=== PATIENT | male | born 1970 | race Caucasian/White ===

== ENCOUNTER 2020-08-30 02:18 | Inpatient (IN) | payer MEDICARE ==
[~2020-08-30] VITALS: Ht 182.9 cm; Wt 158.8 kg
[2020-08-30] VITALS (26 sets, daily range): BP systolic 75–168; BP diastolic 44–103
--- NOTE | 2020-08-30 03:06 | NUR ---
PT RECEIVED FOLLOWING MEDICATIONS AT [facility]: NS 1,500ML HYDROMORPHONE 2MG DOXYCYCLINE 100MG INSULIN 10 UNITS NOREPINEPHRINE 4MG/500ML TITRATE CEFTAZIDIME 1GM
[2020-08-30 03:07] LABS: BASOPHILS 1.2 % (0-2); EOSINOPHILS 0.7 % (0-7); HEMOGLOBIN 13.1 g/dL (13.5-17.5); LYMPHOCYTES 11.4 % (15-50); MCH 28.9 pg (26.0-34.0); MCHC 32.7 g/dL (31.0-37.0); MCV 88.5 fL (80.0-100.0); MEAN PLATELET VOLUME 9.8 fL (7.4-10.4); MONOCYTES 8.6 % (2-11); NEUTROPHILS 78.1 % (40-80); PLATELET COUNT 224 10x3/uL (130-400); RBC 4.52 10x6/uL (4.20-6.10); RDW 13.8 % (11.5-14.5); WBC 13.6 10x3/uL (4.8-10.8)
[2020-08-30 03:09] LABS: CALC OSMOLALITY 291 mosm/kg (275-300); CALCIUM 8.4 mg/dL (8.5-10.1); CARBON DIOXIDE 20.9 mmol/L (21.0-32.0); CHLORIDE - SERUM 100 mmol/L (98-107); CREATININE - SERUM 2.9 mg/dL (0.6-1.3); GLUCOSE 305 mg/dL (74-106); SODIUM 135 mmol/L (136-145); UREA NITROGEN 44 mg/dL (7-18); eGFR NON AFRICAN AMERICAN 25 mL/min (90-120)
[2020-08-30] MEDS ORDERED: BAYER CHEWABLE81 MG PO (03:10)
[2020-08-30] MEDS ORDERED: LIPITOR40 MG PO (03:10)
[2020-08-30 03:11] LABS: APTT 30.2 SECONDS (22.8-39.4); INR 1.55 (0.85-1.17); PROTIME 17.2 SECONDS (11.6-15.0)
[2020-08-30] MEDS ORDERED: ELIQUIS5 MG PO (03:11)
[2020-08-30] MEDS ORDERED: LANTUS INS100 UNITS/ SC (03:11)
[2020-08-30] MEDS ORDERED: LISINOPRIL-HCT1 EAC8 PO (03:11)
[2020-08-30] MEDS ORDERED: FENOFIBRATE160 MG PO (03:11)
[2020-08-30 03:12] LABS: D-DIMER-QUANTITATIVE 0.38 ug/mLFEU (0.20-0.54)
[2020-08-30] MEDS ORDERED: NOVOLOG100 UNIT/1 SC (03:12)
[2020-08-30] MEDS ORDERED: GLUCOPHAGE1000 MG PO (03:12)
[2020-08-30 03:26] LABS: ALBUMIN 2.4 g/dL (3.4-5.0); ALKALINE PHOSPHATASE 41 U/L (30-120); ALT (SGPT) 17 U/L (10-68); AMYLASE - SERUM 26 U/L (25-115); BILIRUBIN - TOTAL 0.58 mg/dL (0.2-1.3); CKMB 0.4 U/L (0.0-3.6); CREATINE KINASE 51 UL (21-232); LIPASE 110 U/L (73-393); PRO BNP 68 pg/mL (0-125); PROTEIN - SERUM 6.9 g/dL (6.4-8.2)
[2020-08-30 03:27] LABS: TROPONIN-I < 0.017 ng/mL (0.000-0.060)
--- NOTE | 2020-08-30 04:06 | NUR ---
URINE SENT TO LAB AT THIS TIME. PT REMAINS ON INVESTIGATIVE ANALYST, SINUS RHYTHM OF 92. RESPIRATIONS EVEN AND NON LABORED ON 2L NC. NAD NOTED, PT DENIES CURRENT NEEDS. NOTED TO BE MOVING AROUND IN BED FREELY, HELPED TO LAY RIGHT SIDE X1 ASSIST STATES THAT PAIN LESSENS WHEN HE LAYS ON HIS SIDE. CALL LIGHT WITHIN REACH, SIDE RAILS X2 AND BED LOWERED.
[2020-08-30 04:11] LABS: BILIRUBIN NEGATIVE (NEGATIVE); KETONE 1+ mg/dL (< 1+); NITRITE NEGATIVE (NEGATIVE); PH 5.5 (5.0-8.0); SQUAMOUS EPITHELIAL <1 HPF (0-4); UROBILINOGEN NORMAL mg/dL (< 2); WHITE CELLS - URINE 1 HPF (0-1)
[2020-08-30 04:14] LABS: UDS - AMPHET NEGATIVE QUAL (NEGATIVE); UDS - BARB NEGATIVE QUAL (NEGATIVE); UDS - BENZO NEGATIVE QUAL (NEGATIVE); UDS - COCAINE NEGATIVE QUAL (NEGATIVE); UDS - OPIATE POSITIVE QUAL (NEGATIVE); UDS - PCP NEGATIVE QUAL (NEGATIVE); UDS - THC NEGATIVE QUAL (NEGATIVE)
--- NOTE | 2020-08-30 04:23 | NUR ---
VANCOMYCIN INFUSION COMPLETE AT THIS TIME.
--- NOTE | 2020-08-30 11:15 | NUR ---
RELIEVING PRIMARY RN FOR LUNCH BREAK AT THIS TIME.
--- NOTE | 2020-08-30 12:08 | NUR ---
Pt had 800ml urine out. Pt ate roughly 1/4 of meal.
--- NOTE | 2020-08-30 14:58 | NUR ---
Pt cleaned and linens replaced. 350ml urine output noted.
--- NOTE | 2020-08-30 17:00 | NUR ---
Pt in no distress. Has no complaints. Denies pain. 500ml additional urine output.
--- NOTE | 2020-08-30 19:00 | NUR ---
Report given to Brie MILLER.
--- NOTE | 2020-08-31 02:48 | NUR ---
PT VSS. RR E/U. PT COMPLAINS OF HOW HOT ROOM IS. PT SHEETS SOAKED FROM SWEAT. NO FEVER. PT UNABLE TO GET COMFORTABLE AND NOW COMPLAING OF PAIN. ICE PACKS PROVIDED, DOOR LEFT OPEN,ICE WATER PROVIDED. PRN PAIN MED GIVEN. BED LOW CALL LIGHT WITHIN REACH. WILL CONTINUE TO MONITOR. .
--- NOTE | 2020-08-31 04:21 | NUR ---
MOVED PT TO 2107 DUE TO BROKE A/C. PT HAPPY.
[2020-08-31 06:23] LABS: BASOPHILS 0.4 % (0-2); EOSINOPHILS 1.2 % (0-7); HEMATOCRIT 35.7 % (42.0-54.0); HEMOGLOBIN 11.7 g/dL (13.5-17.5); LYMPHOCYTES 8.2 % (15-50); MCHC 32.8 g/dL (31.0-37.0); MCV 88.2 fL (80.0-100.0); MEAN PLATELET VOLUME 9.4 fL (7.4-10.4); MONOCYTES 6.5 % (2-11); NEUTROPHILS 83.7 % (40-80); PLATELET COUNT 211 10x3/uL (130-400); RBC 4.05 10x6/uL (4.20-6.10); RDW 13.9 % (11.5-14.5)
[2020-08-31 06:32] LABS: ANION GAP 15.3 mmol/L (8-16); BILIRUBIN - TOTAL 0.53 mg/dL (0.2-1.3); CALCIUM 7.4 mg/dL (8.5-10.1); CARBON DIOXIDE 20.2 mmol/L (21.0-32.0); CREATININE - SERUM 2.4 mg/dL (0.6-1.3); MAGNESIUM - SERUM 1.9 mg/dL (1.8-2.4); PHOSPHOROUS 2.4 mg/dL (2.5-4.9); POTASSIUM - SERUM 3.5 mmol/L (3.5-5.1); PROTEIN - SERUM 6.2 g/dL (6.4-8.2)
--- NOTE | 2020-08-31 07:00 | NUR ---
PT LYING IN BED WITH HOB ELEVATED 30 DEGREES. RESP EVEN AND UNLABORED. AAO X4. DENIES NEEDS AT THIS TIME. CLIR. BED IN LOWEST POSITON. SIDE RAILS X2
--- NOTE | 2020-08-31 07:26 | NUR ---
NO TELE AVIALABLE AT THIS TIME PER [facility].
[2020-08-31 09:00] VITALS: BP 102/61
[2020-08-31 11:51] VITALS: BMI 47.5
--- NOTE | 2020-08-31 13:29 | NUR ---
IV PATENT. CALL LIGHT IN REACH. WILL MONITOR NEEDS.
--- NOTE | 2020-08-31 20:00 | NUR ---
RESTING QUEITLY WITH NO COMPALINTS VOICED. RESP UNALBORED. IV TO RIGHT HAND INTACT WITHOUT REDNESS OR EDEMA NOTED. CL IN REACH
[2020-08-31 21:06] VITALS: BP 131/83
[2020-09-01 02:09] VITALS: BP 128/84
[2020-09-01 04:43] VITALS: Ht 182.9 cm; Wt 158.8 kg
[2020-09-01 06:12] LABS: BASOPHILS 0.3 % (0-2); EOSINOPHILS 1.6 % (0-7); HEMATOCRIT 34.2 % (42.0-54.0); HEMOGLOBIN 11.3 g/dL (13.5-17.5); LYMPHOCYTES 8.4 % (15-50); MCHC 33.1 g/dL (31.0-37.0); MCV 87.6 fL (80.0-100.0); MEAN PLATELET VOLUME 9.7 fL (7.4-10.4); MONOCYTES 5.3 % (2-11); NEUTROPHILS 84.4 % (40-80); PLATELET COUNT 211 10x3/uL (130-400); RBC 3.91 10x6/uL (4.20-6.10); RDW 13.8 % (11.5-14.5); WBC 11.7 10x3/uL (4.8-10.8)
[2020-09-01 06:47] VITALS: BP 124/67
[2020-09-01 07:22] LABS: ALBUMIN 1.8 g/dL (3.4-5.0); ANION GAP 16.2 mmol/L (8-16); BILIRUBIN - TOTAL 0.46 mg/dL (0.2-1.3); CALCIUM 7.4 mg/dL (8.5-10.1); CARBON DIOXIDE 18.2 mmol/L (21.0-32.0); CREATININE - SERUM 2.3 mg/dL (0.6-1.3); MAGNESIUM - SERUM 1.9 mg/dL (1.8-2.4); PHOSPHOROUS 1.9 mg/dL (2.5-4.9); POTASSIUM - SERUM 3.4 mmol/L (3.5-5.1); PROTEIN - SERUM 6.1 g/dL (6.4-8.2); URIC ACID 4.9 mg/dL (2.6-7.2)
[2020-09-01 09:11] VITALS: BP 142/97
--- NOTE | 2020-09-01 09:36 | NUR ---
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
[2020-09-01 11:00] LABS: COMPLEMENT C4 27.3 mg/dL (17.4-52.2)
--- NOTE | 2020-09-01 12:21 | NUR ---
REPORT CALLED TO [facility] ASSOCIATE EDITOR, PATIENT AWARE OF BEING TRANSFERED, NO FURTHER NEEDS AT THIS TIME, RITU LANGLEY
[2020-09-01] MEDS ORDERED: VANCOMYCIN 1.5 GM/NS IV (12:24)
[2020-09-01] MEDS ORDERED: ALBUTEROL2.5 MG/3 M UPD (12:24)
[2020-09-01] MEDS ORDERED: Zosyn 3.375 GM/D5W 5 IVPB (12:24)
[2020-09-01] MEDS ORDERED: PEPCID PO (12:25)
[2020-09-01] MEDS ORDERED: ACETAMINOPHEN325 MG PO (12:25)
[2020-09-01] MEDS ORDERED: TRICOR145 MG PO (12:25)
[2020-09-01] MEDS ORDERED: HUMALOG 30100 UNITS/ SC (12:25)
[2020-09-01] MEDS ORDERED: FLORAJEN DIGES1 EACH PO (12:25)
[2020-09-01] MEDS ORDERED: ZOFRAN INJ IV (12:25)
[2020-09-01] MEDS ORDERED: DILAUDID INJ2 MG/ML IV (12:25)
--- NOTE | 2020-09-02 17:50 | MORECARE ---
CASE MANAGEMENT DISCHARGE SUMMARY PATIENT: ALEJO OSBORN UNIT: [id number] ADM DATE: 08/30/20 AGE: 49 : 70 SEX: M ROOM/BED: D.9388 AUTHOR: BASILIA,DOC PHYSICIAN: REFERRING PHYSICIAN: MAYELIN FOSTER MD DATE OF SERVICE: 09/02/20 Case Management Discharge Planning Summary COMMENTS ENTERED DATE: 09/01/20 11:45 CT COMMENT TYPE: Discharge Planning REVIEWER: Smita Romero Contacted Chinchilla Farmer at [facility] to initiate transfer. Per Rossy they are "completely full" at this time and have no bed availability. Faxed requested documents (H&P, facesheet ) to [phone]. Rossy stated she will review the fax and will contact me when bed becomes available. CM will continue to follow. DCP REVIEW SUMMARY ANTICIPATED D/C DATE: EXPECTED LOS : CASE STATUS: DCP Complete INITIAL REVIEW: 08/30/2020 INITIAL REVIEWER: Smita Romero FINAL DISCHARGE DISPOSITION: : FINAL REVIEWER: FINAL REVIEW DATE: DCP [employer] Questions & Answers QUESTION: ANSWER : PATIENT: ALEJO OSBORN ENCOUNTER: [id number] MEDICAL RECORD#: [id number] ADMISSION DATE: 08/30/2020 DISCHARGE DATE: 09/01/2020 ATTENDING MD: MAYELIN GRANADOS : AGE: 49 MARITAL STATUS: S DC PLAN ID: [id number] FACILITY: [facility] PRINTED ON: 09/02/20 17:50 CT All edits/amendments must be made on the electronic document DICTATION DATE: 09/02/201749 MANAGER OF DEVELOPMENT: DM 09/02/201749 RPT#: [id number] DC DATE:09/01/20 STATUS: DIS IN [facility] [address] [place] [address] END OF REPORT
--- NOTE | 2020-09-03 09:24 | MORECARE ---
CASE MANAGEMENT DISCHARGE SUMMARY PATIENT: ALEJO OSBORN UNIT: [id number] ADM DATE: 08/30/20 AGE: 49 : 70 SEX: M ROOM/BED: D.9829 AUTHOR: BASILIA,DOC PHYSICIAN: REFERRING PHYSICIAN: MAYELIN FOSTER MD DATE OF SERVICE: 09/03/20 Case Management Discharge Planning Summary COMMENTS ENTERED DATE: 09/01/20 11:45 CT COMMENT TYPE: Discharge Planning REVIEWER: Smita Romero Contacted Rip Tailer at [facility] to initiate transfer. Per Rossy they are "completely full" at this time and have no bed availability. Faxed requested documents (H&P, facesheet ) to [phone]. Rossy stated she will review the fax and will contact me when bed becomes available. CM will continue to follow. DCP REVIEW SUMMARY ANTICIPATED D/C DATE: EXPECTED LOS : CASE STATUS: DCP Complete INITIAL REVIEW: 08/30/2020 INITIAL REVIEWER: Smita Romero FINAL DISCHARGE DISPOSITION: : FINAL REVIEWER: FINAL REVIEW DATE: DCP [employer] Questions & Answers QUESTION: ANSWER : PATIENT: ALEJO OSBORN ENCOUNTER: [id number] MEDICAL RECORD#: [id number] ADMISSION DATE: 08/30/2020 DISCHARGE DATE: 09/01/2020 ATTENDING MD: MAYELIN GRANADOS : AGE: 49 MARITAL STATUS: S DC PLAN ID: [id number] FACILITY: [facility] PRINTED ON: 09/03/20 9:24 CT All edits/amendments must be made on the electronic document DICTATION DATE: 09/03/20923 [employer] DRIVER: DM 09/03/20923 RPT#: [id number] DC DATE:09/01/20 STATUS: DIS IN [facility] [address] [place] [address] END OF REPORT
[2020-09-04 10:11] LABS: ANA REFLEX - DIRECT Negative (Negative)
[2020-09-04 11:11] LABS: HEPATITIS C ANTIBODY <0.1 (0.0-0.9)
[2020-09-04 15:11] LABS: SPE - A/G RATIO 0.6 (0.7-1.7); SPE - ALBUMIN 2.2 g/dL (2.9-4.4); SPE - ALPHA-1 GLOBULIN 0.4 g/dL (0.0-0.4); SPE - ALPHA-2 GLOBULIN 1.1 g/dL (0.4-1.0); SPE - GAMMA GLOBULIN 0.8 g/dL (0.4-1.8); SPE - M-SPIKE Not Observed g/dL (Not Observed); SPE - TOTAL PROTEIN 5.6 g/dL (6.0-8.5)
== END 2020-09-01 13:56 | disposition short-term general hospital (02) | DRG 872 ==
LOC: EDBD 02:18 → D.ER 02:18 → D.M2 02:35 → D.EDHOLD 02:35 → D.M2 22:33
PROVIDERS: Emergency Medicine; Internal Medicine Nephrology; ADMIT Emergency Medicine; ATTEND Emergency Medicine
DX: A41.9 Sepsis, unspecified organism (principal); N17.9 Acute kidney failure, unspecified; Z68.42 Body mass index [BMI] 45.0-49.9, adult; I95.9 Hypotension, unspecified; N45.1 Epididymitis; Z79.01 Long term (current) use of anticoagulants; Z86.718 Personal history of other venous thrombosis and embolism; R56.9 Unspecified convulsions; E11.9 Type 2 diabetes mellitus without complications; Z89.511 Acquired absence of right leg below knee; T81.89XA Other complications of procedures, not elsewhere classified, initial encounter; Y83.9 Surgical procedure, unspecified as the cause of abnormal reaction of the patient, or of later complication, without mention of misadventure at the time of the procedure; E66.9 Obesity, unspecified